=== PATIENT | female | born 1985 | race Caucasian/White ===

== ENCOUNTER 2019-04-23 19:52 | Emergency (ER) | payer MEDICAID ==
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
[2019-04-23] MEDS ORDERED: Ketorolac 60 MG/2 ML SDV IM ONE (21:15)
== END 2019-04-23 21:39 | disposition home or self-care (01) ==
LOC: MW.ED 19:52
DX: M54.5 Low back pain (principal); E66.9 Obesity, unspecified; F17.210 Nicotine dependence, cigarettes, uncomplicated; Z98.51 Tubal ligation status; Z88.0 Allergy status to penicillin
CPT/HCPCS: 96372; 99283; J1885

== ENCOUNTER 2019-05-17 16:49 | Emergency (ER) | payer MEDICAID ==
--- NOTE | 2019-05-17 17:49 | EDM.PDOC ---
<Claude Mckeon - Last Filed: 05/17/19 20:34> ED HPI GENERAL MEDICAL PROBLEM - General Chief Complaint: Headache Stated Complaint: FLU SYMPTOMS Time Seen by Provider: 05/17/19 17:27 - Related Data Allergies Allergy/AdvReac Type Severity Reaction Status Date / Time Penicillins Allergy Anaphylactic Verified 05/17/19 18:06 Shock Home Meds: Home Meds Cholecalciferol (Vitamin D3) [Vitamin D] 0 mg PO DAILY 04/23/19 [History] Diclofenac Sodium [Voltaren] 75 mg PO BIDMEALS #20 tab.cr 04/23/19 [Rx] Course - Vital Signs Text/Narrative:: Emergency department course has been unremarkable CTA of her chest was negative for pulmonary embolism or other acute finding patient be discharged home follow- up primary medical doctor and return as needed as discussed Last Recorded V/S: Last Vital Signs Temp 98.1 F 05/17/19 18:06 Pulse 98 05/17/19 18:06 Resp 14 05/17/19 18:06 BP 130/86 05/17/19 18:06 Pulse Ox 97 05/17/19 18:06 - Orders/Labs/Meds Labs: Laboratory Tests 05/17/19 05/17/19 05/17/19 Range/Units 18:39 18:39 18:39 WBC 11.26 H (4.0-11.0) K/uL RBC 4.80 (4.30-5.90) M/uL Hgb 14.9 (12.0-16.0) g/dL Hct 42.8 (36.0-46.0) % MCV 89.2 (80.0-98.0) fL MCH 31.0 (27.0-32.0) pg MCHC 34.8 (31.0-37.0) g/dL RDW Std Deviation 40.7 (28.0-62.0) fl RDW Coeff of Nikki 13 (11.0-15.0) % Plt Count 238 (150-400) K/uL MPV 10.80 (7.40-12.00) fL Neut % (Auto) 73.6 (48.0-80.0) % Lymph % (Auto) 18.9 (16.0-40.0) % [place] % (Auto) 7.1 (0.0-15.0) % Eos % (Auto) 0.2 (0.0-7.0) % Baso % (Auto) 0.2 (0.0-1.5) % Neut # (Auto) 8.3 H (1.4-5.7) K/uL Lymph # (Auto) 2.1 (0.6-2.4) K/uL [place] # (Auto) 0.8 (0.0-0.8) K/uL Eos # (Auto) 0.0 (0.0-0.7) K/uL Baso # (Auto) 0.0 (0.0-0.1) K/uL Nucleated RBC % 0.0 /100WBC Nucleated RBCs # 0 K/uL D-Dimer, Quantitative 1.71 H (0.0-0.50) mg/L FEU Sodium 138 (136-145) mmol/L Potassium 3.6 (3.5-5.1) mmol/L Chloride 103 (98-107) mmol/L Carbon Dioxide 25.1 (21.0-32.0) mmol/L BUN 9 (7.0-18.0) mg/dL Creatinine 0.7 (0.6-1.0) mg/dL Est Cr Clr Drug Dosing 99.63 mL/min Estimated GFR (MDRD) > 60.0 ml/min Glucose 101 (74-106) mg/dL Calcium 8.8 (8.5-10.1) mg/dL Total Bilirubin 0.4 (0.2-1.0) mg/dL AST 10 L (15-37) IU/L ALT 19 (14-63) IU/L Alkaline Phosphatase 77 (46-116) U/L Troponin I < 0.050 (0.000-0.056) ng/mL Total Protein 7.3 (6.4-8.2) g/dL Albumin 3.4 (3.4-5.0) g/dL Globulin 3.9 (2.6-4.0) g/dL Albumin/Globulin Ratio 0.9 (0.9-1.6) Meds: Medications Discontinued Medications Generic Name Dose Route Start Last Admin Trade Name Freq PRN Reason Stop Dose Admin Iopamidol 100 ml 05/17/19 20:03 05/17/19 20:04 Isovue Multipack-370 (76%) IVPUSH 05/17/19 20:04 100 ml ONETIME ONE Administration Morphine Sulfate 4 mg 05/17/19 18:03 05/17/19 18:45 Morphine IVPUSH 05/17/19 18:04 4 mg ONETIME ONE Administration Ondansetron HCl 4 mg 05/17/19 18:03 05/17/19 18:45 Zofran IVPUSH 05/17/19 18:04 4 mg ONETIME ONE Administration Departure - Departure Time of Disposition: 20:34 Disposition: Home, Self-Care 01 Condition: Good Clinical Impression: Migraine, Atypical chest pain - Discharge Information Instructions: Migraine Headache, [id number], Nonspecific Chest Pain, Easy-to- Read Referrals: Makenna Dorman NP [Primary Care Provider] - Forms: ED Department Discharge Additional Instructions: The following information is given to patients seen in the emergency department who are being discharged to home. This information is to outline your options for follow-up care. We provide all patients seen in our emergency department with a follow-up referral. The need for follow-up, as well as the timing and circumstances, are variable depending upon the specifics of your emergency department visit. If you don't have a primary care physician on staff, we will provide you with a referral. We always advise you to contact your personal physician following an emergency department visit to inform them of the circumstance of the visit and for follow-up with them and/or the need for any referrals to a consulting specialist. The emergency department will also refer you to a specialist when appropriate. This referral assures that you have the opportunity for followup care with a specialist. All of these measure are taken in an effort to provide you with optimal care, which includes your followup. Under all circumstances we always encourage you to contact your private physician who remains a resource for coordinating your care. When calling for followup care, please make the office aware that this follow-up is from your recent emergency room visit. If for any reason you are refused follow-up, please contact the [facility] emergency department at and asked to speak to the emergency department charge nurse. [facility] [address] [place] [id number] Follow-up primary medical doctor return as needed as discussed Sepsis Event Note - Focused Exam Date Exam was Performed: 05/17/19 Time Exam was Performed: 20:34 <Osmel Senior - Last Filed: 05/18/19 09:28> ED HPI GENERAL MEDICAL PROBLEM - General Source of Information: Reports: Patient History Limitations: Reports: No Limitations - History of Present Illness INITIAL COMMENTS - FREE TEXT/NARRATIVE: This 34 year old female was admitted to the ED with a chief complaint of severe migraine headache with nausea and vomiting that woke her up at 7:00AM this morning. She states that she last had a CT scan of the head 5 years ago but that this headache is very similar to her other ones. The patient also complains of sub-sternal chest pain and states that it feels if though someone is sitting on her chest. She complains of mild SOB. She denies any pain into her upper extremities or jaw. She does not have a history of heart disease. No history of diabetes mellitus, hypertension or hyperlipidemia. She also complains of epigastric abdominal pain that started this morning but seems to be getting better. She denies any diarrhea or any other GI complaints. 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 Denies: Blood Pressure Problem, Lightheadedness, Orthopnea, Palpitations, PND Endocrine: Reports: No Symptoms GI/Abdominal: Reports: Abdominal Pain (epigastric area.), Nausea (associated with her headache) : Reports: No Symptoms Musculoskeletal: Reports: No Symptoms Skin: Reports: No Symptoms Neurological: Reports: Headache. Denies: Numbness, Seizure, Tingling, Tremors, Trouble Speaking, Difficulty Walking, Weakness Psychiatric: Reports: No Symptoms ED EXAM, GENERAL - Physical Exam Exam: See Below Exam Limited By: No Limitations General Appearance: Alert (But complaining of a headache in the temprol areas bilaterally), WD/WN, No Apparent Distress, Mild Distress Eye Exam: Bilateral Eye: EOMI, Normal Inspection, PERRL Ears: Normal External Exam, Normal Canal, Hearing Grossly Normal, Normal TMs Ear Exam: Bilateral Ear: Auricle Normal, Canal Normal, TM normal Nose: Normal Inspection, Normal Mucosa, No Blood Throat/Mouth: Normal Inspection, Normal Lips, Normal Teeth, Normal Gums, Normal Oropharynx, Normal Voice, No Airway Compromise Head: Atraumatic, Normocephalic. No: Facial Tenderness, Sinus Tenderness Neck: Normal Inspection, Supple, Non-Tender, Full Range of Motion. No: Carotid Bruit Respiratory/Chest: No Respiratory Distress, Lungs Clear, Normal Breath Sounds, No Accessory Muscle Use, Chest Non-Tender Cardiovascular: Normal Peripheral Pulses, Regular Rate, Rhythm, No Edema, No Gallop, No JVD, No Murmur, No Rub. No: Diastolic Murmur, Systolic Murmur Peripheral Pulses: 3+: Carotid (L), Radial (L), Radial (R), Dorsalis Pedis (L), Dorsalis Pedis (R), 4+: Carotid (R) GI/Abdominal: Normal Bowel Sounds, Soft, Non-Tender, No Organomegaly, No Distention, No Abnormal Bruit, No Mass, Other (obese) (Female) Exam: Deferred Rectal (Female) Exam: Deferred Back Exam: Normal Inspection, Full Range of Motion, NT Extremities: Normal Inspection, Normal Range of Motion, Non-Tender, Normal Capillary Refill, No Pedal Edema Neurological: Alert, Oriented, CN II-XII Intact, Normal Cognition, Normal Gait, Normal Reflexes, No Motor/Sensory Deficits Psychiatric: Normal Affect, Normal Mood Skin Exam: Warm, Dry, Intact, Normal Color, No Rash Lymphatic: No Adenopathy Course - Vital Signs Text/Narrative:: I discussed this case with Dr. Mckeon my ED colleague at 7:25PM in a handoff. I discussed with him her complete history as well as all of her diagnostic test. I told him that I had ordered a CTA of the chest due to concerns of a PE. Her D-dimer was high and with her complaints, it must be ruled out. I also discussed with Dr. Mckeon the patient's chest pain regarding if it is cardiac in nature. She has a HEART score of 1 based on her history. She has no history of heart disease, a unremarkable ECG, she is 34 years old, she has no history of hypertension, diabetes mellitus or hyperlipidemia (no pre- existing factors) and a Troponin of <0.05. Regarding her recurrent migraines, I feel that because this is similar to other migraines that she has had in the past, there was not reason to get a CT of her brain. If her CTA of the chest is negative, I see no reason why she needs to be admitted but this will be up to Dr. Mckeon. MD CHERELLE 7:36PM Last Recorded V/S: Last Vital Signs Temp 98.1 F 05/17/19 18:06 Pulse 98 05/17/19 18:06 Resp 14 05/17/19 18:06 BP 130/86 05/17/19 18:06 Pulse Ox 97 05/17/19 18:06 - Orders/Labs/Meds Labs: Laboratory Tests 05/17/19 05/17/19 05/17/19 Range/Units 18:39 18:39 18:39 WBC 11.26 H (4.0-11.0) K/uL RBC 4.80 (4.30-5.90) M/uL Hgb 14.9 (12.0-16.0) g/dL Hct 42.8 (36.0-46.0) % MCV 89.2 (80.0-98.0) fL MCH 31.0 (27.0-32.0) pg MCHC 34.8 (31.0-37.0) g/dL RDW Std Deviation 40.7 (28.0-62.0) fl RDW Coeff of Nikki 13 (11.0-15.0) % Plt Count 238 (150-400) K/uL MPV 10.80 (7.40-12.00) fL Neut % (Auto) 73.6 (48.0-80.0) % Lymph % (Auto) 18.9 (16.0-40.0) % [place] % (Auto) 7.1 (0.0-15.0) % Eos % (Auto) 0.2 (0.0-7.0) % Baso % (Auto) 0.2 (0.0-1.5) % Neut # (Auto) 8.3 H (1.4-5.7) K/uL Lymph # (Auto) 2.1 (0.6-2.4) K/uL [place] # (Auto) 0.8 (0.0-0.8) K/uL Eos # (Auto) 0.0 (0.0-0.7) K/uL Baso # (Auto) 0.0 (0.0-0.1) K/uL Nucleated RBC % 0.0 /100WBC Nucleated RBCs # 0 K/uL D-Dimer, Quantitative 1.71 H (0.0-0.50) mg/L FEU Sodium 138 (136-145) mmol/L Potassium 3.6 (3.5-5.1) mmol/L Chloride 103 (98-107) mmol/L Carbon Dioxide 25.1 (21.0-32.0) mmol/L BUN 9 (7.0-18.0) mg/dL Creatinine 0.7 (0.6-1.0) mg/dL Est Cr Clr Drug Dosing 99.63 mL/min Estimated GFR (MDRD) > 60.0 ml/min Glucose 101 (74-106) mg/dL Calcium 8.8 (8.5-10.1) mg/dL Total Bilirubin 0.4 (0.2-1.0) mg/dL AST 10 L (15-37) IU/L ALT 19 (14-63) IU/L Alkaline Phosphatase 77 (46-116) U/L Troponin I < 0.050 (0.000-0.056) ng/mL Total Protein 7.3 (6.4-8.2) g/dL Albumin 3.4 (3.4-5.0) g/dL Globulin 3.9 (2.6-4.0) g/dL Albumin/Globulin Ratio 0.9 (0.9-1.6) Meds: Medications Discontinued Medications Generic Name Dose Route Start Last Admin Trade Name Freq PRN Reason Stop Dose Admin Iopamidol 100 ml 05/17/19 20:03 05/17/19 20:04 Isovue Multipack-370 (76%) IVPUSH 05/17/19 20:04 100 ml ONETIME ONE Administration Morphine Sulfate 4 mg 05/17/19 18:03 05/17/19 18:45 Morphine IVPUSH 05/17/19 18:04 4 mg ONETIME ONE Administration Ondansetron HCl 4 mg 05/17/19 18:03 05/17/19 18:45 Zofran IVPUSH 05/17/19 18:04 4 mg ONETIME ONE Administration Departure - Discharge Information *PRESCRIPTION DRUG MONITORING PROGRAM REVIEWED*: Yes *COPY OF PRESCRIPTION DRUG MONITORING REPORT IN PATIENT STEPHANY: Yes Sepsis Event Note - Focused Exam Date Exam was Performed: 05/18/19 Time Exam was Performed: 07:31
[2019-05-17] MEDS ORDERED: Morphine 4 MG/ML Syringe IVPUSH ONE (18:03)
[2019-05-17] MEDS ORDERED: Ondansetron 4 MG/2 ML SDV IVPUSH ONE (18:03)
--- NOTE | 2019-05-17 18:31 | CR ---
INDICATION: Chest pain. TECHNIQUE: AP portable view of the chest. COMPARISON: None. FINDINGS: The cardiomediastinal silhouette size is normal. There is no focal pulmonary opacity, pleural effusion or pneumothorax. The visualized osseous structures are unremarkable for age. IMPRESSION: No acute cardiopulmonary abnormality. Dictated by Fany Smith MD @ May 17 2019 6:28PM Signed by Dr. Fany Smith @ May 17 2019 6:28PM
[2019-05-17 19:12] LABS: BLOOD UREA NITROGEN,BUN 9 mg/dL (7.0-18.0); CARBON DIOXIDE,CO2 25.1 mmol/L (21.0-32.0); CHLORIDE,CL 103 mmol/L (98-107); GLUCOSE RANDOM 101 mg/dL (74-106); POTASSIUM,K 3.6 mmol/L (3.5-5.1); SODIUM,NA 138 mmol/L (136-145)
[2019-05-17] MEDS ORDERED: Iopamidol 755 MG/ML 200 ML Multipack Bottle IVPUSH ONE (20:03)
--- NOTE | 2019-05-17 20:24 | CT ---
INDICATION: Chest pain and shortness of breath. Elevated D-dimer. CT CHEST WITH CONTRAST TECHNIQUE: Multidetector CT imaging was performed through the chest following intravenous contrast administration using 90 mL Isovue 370. Coronal and sagittal reconstructions were generated. COMPARISON: None. FINDINGS: Lungs and airways: No confluent infiltrates, suspicious nodules, or masses. Central airways are patent. Pleura and pleural spaces: No pleural effusions or pneumothorax. Heart and mediastinum: Normal heart size. No significant pericardial effusion. No pathologically enlarged mediastinal lymph nodes. Vascular structures: No filling defects in the pulmonary arterial tree to suggest pulmonary emboli. Normal caliber aorta without evidence of dissection. Chest wall and axillae: No mass or axillary lymphadenopathy. Osseous structures: Normal for age. No acute fractures identified. Upper abdomen: Unremarkable except for cholelithiasis within an incompletely imaged gallbladder. IMPRESSION: 1. No pulmonary emboli or other acute intrathoracic abnormality identified. 2. Cholelithiasis. ALICIA CAT MD [employer] Dictated by Dav Cat MD @ 05/17/2019 8:21:01 PM Dictated by: Dav Cat MD @ 05/17/2019 20:21:43 (Electronically Signed)
== END 2019-05-17 21:00 | disposition home or self-care (01) ==
LOC: MW.ED 16:49
DX: R07.89 Other chest pain (principal); G43.909 Migraine, unspecified, not intractable, without status migrainosus; Z88.0 Allergy status to penicillin
CPT/HCPCS: 36415; 71045; 71275; 80053; 84484; 85025; 85379; 93005; 96374; 96375; 99285; J2270; J2405; Q9967

== ENCOUNTER 2019-06-27 09:14 | Emergency (ER) | payer SELFPAY | END 2019-06-27 09:52 | disposition left against medical advice (07) | LOC: MW.ED 09:14 | DX: Z53.21 Procedure and treatment not carried out due to patient leaving prior to being seen by health care provider (principal) ==